=== PATIENT | female | born 1975 | race Caucasian/White ===

== ENCOUNTER 2018-05-22 11:55 | Observation (INO) ==
[2018-05-22] MEDS ORDERED: Ondansetron 4 MG/2 ML VIAL IVP ONE (13:15)
[2018-05-22] MEDS ORDERED: 0.9 % Sodium Chloride 1,000 ML IVC ONE (13:15)
[2018-05-22 13:18] LABS: Basophils % 0.3 %; Eosinophils # 0.3 K/mcL (0.0-0.6); Eosinophils % 3.8 %; Hematocrit 36.8 % (35.3-44.9); Hemoglobin 12.3 g/dL (11.5-15.4); Immature Granulocytes % 0.3 % (0-4); Lymphocytes # 1.8 K/mcL (0.6-4.6); Lymphocytes % 27.3 %; Mean Corpuscular HGB Conc 33.4 g/dL (31.6-35.5); Mean Corpuscular Hemoglobin 29.4 pg (28.0-33.3); Mean Corpuscular Volume 87.8 fL (83.0-100.0); Mean Platelet Volume 9.2 fL (9.4-12.4); Monocytes # 0.3 K/mcL (0.0-1.3); Monocytes % 4.9 %; Neutrophils # 4.2 K/mcL (1.6-8.9); Platelet Count 241 K/mcL (140-400); Red Blood Count 4.19 M/mcL (3.82-4.97); Red Cell Distribution Width 12.8 % (11.5-14.5); Segmented Neutrophils % 63.4 %
[2018-05-22] MEDS ORDERED: Hyoscyamine SL 0.125 MG TAB.SUBL SL STA (13:20)
--- NOTE | 2018-05-22 13:24 | Emergency Department Note ---
Disposition Clinical Impression: Ovarian torsion Disposition: Admitted As Inpatient Condition: Undetermined Time of Disposition: 15:26 Abdominal Pain HPI - General Chief Complaint: ED Abdominal Pain Stated Complaint: abd pain Time Seen by Provider: 05/22/18 13:04 Source: patient Mode of arrival: ambulatory Limitations: no limitations Nursing Notes Reviewed: Yes Vital Signs Reviewed: Yes - History of Present Illness HPI Narrative: 42-year-old female with history of previous opiate abuse in 24 months clean on the vivitrol, history of appendectomy, history of tubal ligation, arrives to the emergency department with complaint of lower abdominal discomfort. The patient states is been ongoing the past few days. Patient states it is nonradiating. In addition the patient is noted a roughly 24 hours of a large amount of vaginal bleeding. She denies any other vaginal discharge. She denies any fevers, chills, vomiting, diarrhea, melena, hematochezia, chest pain , difficulty breathing. The patient is uncomfortable on examination but is in no acute distress at this time. Pain Scale: 10 - Related Data Home Medications Medication Instructions Recorded Confirmed BuPROPion XL (24 HR) [Wellbutrin 150 mg PO DAILY 05/22/18 05/22/18 XL] Bupropion HCl [Wellbutrin Xl] 300 mg PO DAILY 05/22/18 05/22/18 FLUoxetine HCl [Fluoxetine HCl] 40 mg PO DAILY 05/22/18 05/22/18 Gabapentin [Neurontin] 600 mg PO TID 05/22/18 05/22/18 Naltrexone HCl 50 mg PO DAILY 05/22/18 05/22/18 Naltrexone Microspheres [Vivitrol] 380 mg IM Q28D 05/22/18 05/22/18 Allergies Allergy/AdvReac Type Severity Reaction Status Date / Time No Known Allergies Allergy Verified 05/22/18 15:48 All systems ED: reviewed and negative except as stated. Constitutional: Denies: fever, chills, weakness ENT ED: Denies: dysphagia Cardiovascular: Denies: chest pain Respiratory: Denies: dyspnea Gastrointestinal: Reports: abdominal pain, nausea. Denies: vomiting, diarrhea, constipation, hematemesis, melena, hematochezia Genitourinary: Reports: abnormal menses. Denies: urgency, dysuria, frequency, hematuria, discharge Musculoskeletal: Denies: back pain, neck pain, arthralgia, myalgia Integumentary: Denies: rash Neurological: Denies: headache Abdominal Pain PMH - Past Medical History Medical history: Reports: other (IVDA) Female Surgical History: Reports: no surgical history Psychiatric history: Reports: anxiety, depression - Social History Smoking status: Current every day smoker Alcohol use: Reports: none Drug use: Reports: cocaine, opiates (states she likes Percocets and Hydrocodone) , marijuana, IV Drug Use Physical Exam - General Limitations: no limitations General appearance: alert, in no apparent distress - Head Head exam: atraumatic, normocephalic, normal inspection - Eye Eye exam: Present: normal appearance, PERRL, EOMI - ENT ENT exam: normal exam, normal oropharynx, mucous membranes moist - Neck Neck exam: Present: normal inspection, full ROM, trachea midline - Chest Chest inspection: Present: normal inspection, symmetric chest wall rise - Respiratory Respiratory exam: Present: normal lung sounds bilaterally - Cardiovascular Cardiovascular exam: Present: regular rate, normal rhythm, normal heart sounds - Abdominal Exam Abdominal exam: Present: soft, tenderness (Pelvis). Absent: distention, guarding, rebound, rigidity, pulsatile mass, hernia - Extremities Exam Extremities exam: Present: normal inspection, full ROM. Absent: tenderness, pedal edema - Neurological Exam Neurological exam: Present: alert, oriented X3 - Skin Skin exam: Present: warm, dry, intact, normal color Course - Reevaluation(s) Reevaluation #1: Patient's CT scan demonstrates subcutaneous areas of fluid collection. Patient denies any injections or reason why they are be fluid collections in the pelvis. In addition the patient's transvaginal ultrasound reveals lack of flow to the left ovary. This is noted to be likely technical but given the patient' s pelvic pain, DEPENDENCY COUNSELOR was called and are requested to see the patient in the emergency department. We spoke to Kimberly Marie, who will see patient. Time: 15:12 Vital Signs Temperature 98.0 F 05/22/18 11:59 Pulse Rate 71 05/22/18 11:59 Respiratory Rate 20 05/22/18 11:59 Blood Pressure 135/90 05/22/18 11:59 O2 Sat by Pulse Oximetry 98 05/22/18 11:59 Temperature 98.0 F 05/22/18 13:00 Pulse Rate 66 05/22/18 16:01 Respiratory Rate 18 05/22/18 16:01 Blood Pressure 128/86 05/22/18 16:01 O2 Sat by Pulse Oximetry 99 05/22/18 16:01 Oxygen Delivery Oxygen Delivery Room Air Abdominal Pain - MDM Narrative Medical decision making narrative: Patient seen by DEPENDENCY COUNSELOR, Dr. Nelson in room and they will be taking to the operating room for concern for left ovarian torsion. The patient was noted to have no flow on the left side noted from revisualization by DEPENDENCY COUNSELOR. - Lab Data Lab results reviewed: Yes I reviewed the patient's lab results. Result diagrams: 05/22/18 12:52 05/22/18 12:52 Lab Results 05/22/18 05/22/18 05/22/18 Range/Units 12:52 12:52 13:09 WBC 6.6 (4.3-11.1) K/mcL RBC 4.19 (3.82-4.97) M/mcL Hgb 12.3 (11.5-15.4) g/dL Hct 36.8 (35.3-44.9) % MCV 87.8 (83.0-100.0) fL MCH 29.4 (28.0-33.3) pg MCHC 33.4 (31.6-35.5) g/dL RDW 12.8 (11.5-14.5) % Plt Count 241 (140-400) K/mcL MPV 9.2 L (9.4-12.4) fL Immature Gran % 0.3 (0-4) % Seg Neutrophils % 63.4 % Lymphocytes % 27.3 % Monocytes % 4.9 % Eosinophils % 3.8 % Basophils % 0.3 % Neutrophils # 4.2 (1.6-8.9) K/mcL Lymphocytes # 1.8 (0.6-4.6) K/mcL Monocytes # 0.3 (0.0-1.3) K/mcL Eosinophils # 0.3 (0.0-0.6) K/mcL Basophils # 0.0 (0.0-0.2) K/mcL Sodium 137 (136-145) mEq/L Potassium 4.3 (3.5-5.1) mEq/L Chloride 109 H (98-107) mEq/L Carbon Dioxide 23 (23-29) mEq/L BUN 19 (6-20) mg/dL Creatinine 0.61 (0.60-1.20) mg/dL Est GFR ( Amer) > 60 (> 60) Est GFR (Non-Af Amer) > 60 (> 60) BUN/Creatinine Ratio 31 H (6-26) Glucose 106 H (70-105) mg/dL Calculated Osmolality 287 (280-300) Calcium 8.5 L (8.6-10.3) mg/dL Total Bilirubin 0.3 (0.3-1.0) mg/dL Direct Bilirubin 0.1 (0.0-0.2) mg/dL Indirect Bilirubin 0.2 (0.0-1.2) mg/dL AST 17 (13-39) Units/L ALT 13 (7-52) Units/L Alkaline Phosphatase 57 (34-104) Units/L Serum Total Protein 6.6 (6.4-8.9) g/dL Albumin 3.7 (3.5-5.7) g/dL Globulin 2.9 (2.4-3.5) g/dL Albumin/Globulin Ratio 1.3 (1.1-2.2) Lipase 11 (11-82) Units/L Urine Color Yellow (Yellow) Urine Clarity Clear (Clear) Urine pH 6.0 (5.0-8.0) pH Units Ur Specific [place] 1.026 H (1.010-1.025) Urine Protein Negative (Neg-Trace) mg/dL Urine Glucose (UA) Normal (Normal) mg/dL Urine Ketones Negative (Negative) mg/dL Urine Blood Large H (Negative) Urine Nitrite Negative (Negative) Urine Bilirubin Negative (Negative) Urine Urobilinogen Normal (Normal) mg/dL Ur Leukocyte Esterase Negative (Negative) Urine Microscopic RBC TNTC H (0-3) per hpf Urine Microscopic WBC 0-3 (0-3) per hpf Ur Squamous Epith Cells Many H (None-Few) per lpf Urine Bacteria None Seen (None-Few) per hpf Hyaline Casts None Seen (None-Few) per lpf Ur Culture Indicated? NO (NO) Urine Test (Negative) 05/22/18 Range/Units 13:09 WBC (4.3-11.1) K/mcL RBC (3.82-4.97) M/mcL Hgb (11.5-15.4) g/dL Hct (35.3-44.9) % MCV (83.0-100.0) fL MCH (28.0-33.3) pg MCHC (31.6-35.5) g/dL RDW (11.5-14.5) % Plt Count (140-400) K/mcL MPV (9.4-12.4) fL Immature Gran % (0-4) % Seg Neutrophils % % Lymphocytes % % Monocytes % % Eosinophils % % Basophils % % Neutrophils # (1.6-8.9) K/mcL Lymphocytes # (0.6-4.6) K/mcL Monocytes # (0.0-1.3) K/mcL Eosinophils # (0.0-0.6) K/mcL Basophils # (0.0-0.2) K/mcL Sodium (136-145) mEq/L Potassium (3.5-5.1) mEq/L Chloride (98-107) mEq/L Carbon Dioxide (23-29) mEq/L BUN (6-20) mg/dL Creatinine (0.60-1.20) mg/dL Est GFR ( Amer) (> 60) Est GFR (Non-Af Amer) (> 60) BUN/Creatinine Ratio (6-26) Glucose (70-105) mg/dL Calculated Osmolality (280-300) Calcium (8.6-10.3) mg/dL Total Bilirubin (0.3-1.0) mg/dL Direct Bilirubin (0.0-0.2) mg/dL Indirect Bilirubin (0.0-1.2) mg/dL AST (13-39) Units/L ALT (7-52) Units/L Alkaline Phosphatase (34-104) Units/L Serum Total Protein (6.4-8.9) g/dL Albumin (3.5-5.7) g/dL Globulin (2.4-3.5) g/dL Albumin/Globulin Ratio (1.1-2.2) Lipase (11-82) Units/L Urine Color (Yellow) Urine Clarity (Clear) Urine pH (5.0-8.0) pH Units Ur Specific [place] (1.010-1.025) Urine Protein (Neg-Trace) mg/dL Urine Glucose (UA) (Normal) mg/dL Urine Ketones (Negative) mg/dL Urine Blood (Negative) Urine Nitrite (Negative) Urine Bilirubin (Negative) Urine Urobilinogen (Normal) mg/dL Ur Leukocyte Esterase (Negative) Urine Microscopic RBC (0-3) per hpf Urine Microscopic WBC (0-3) per hpf Ur Squamous Epith Cells (None-Few) per lpf Urine Bacteria (None-Few) per hpf Hyaline Casts (None-Few) per lpf Ur Culture Indicated? (NO) Urine Test Negative (Negative) - Radiology Data Radiology results reviewed: Yes I reviewed the patient's radiology results. Abdomen/Pelvis CT 05/22/18 13:21 IMPRESSION: 1. No acute process in the abdomen or pelvis. 2. Postoperative change of appendectomy. 3. Scattered small nonspecific areas of fluid in the subcutaneous soft tissues overlying the posterior aspect of the pelvis, measuring up to 2.8 x 1.9 cm. These could represent the sequelae of subcutaneous injections. Infected fluid collections are felt to be unlikely. D/ / 05/22/2018 15:11:31 Diego Menezes MD / [facility] Interpreting Provider: Diego Menezes MD Abdomen/Pelvis/Transvag US 05/22/18 13:21 IMPRESSION: 1. No flow is detected in the left ovary which is favored to be technical and related to suboptimal visualization. The right ovary appears within normal limits. 2. A 7 x 6 x 9 mm echogenic focus in the right ovary, most consistent with a dermoid cyst. D/ / 05/22/2018 14:51:13 Diego Menezes MD / [facility] Interpreting Provider: Diego Menezes MD Attestation Statement - Attestation Attestation: I examined this patient and my medical decision-making was reviewed with the Resident Physician. I agree with the documented findings, disposition and treatment plan as described except to the extent set forth below. Ultrasound concerning for possible torsion given pain in the lower quadrant we will consult emergently gynecology. They are available at the bedside for emergent consultation. The patient will be admitted to gynecology and will be taken directly to the operating room
[2018-05-22 13:26] LABS: Bilirubin,Urine Negative (Negative); Blood,Urine Large (Negative); Clarity,Urine Clear (Clear); Color,Urine Yellow (Yellow); Glucose,Urine (UA) Normal (Normal); Ketones,Urine Negative (Negative); Leukocyte Esterase,Urine Negative (Negative); Nitrite,Urine Negative (Negative); Protein,Urine Negative (Neg-Trace); Specific Gravity,Urine 1.026 (1.010-1.025); Urobilinogen,Urine Normal (Normal)
[2018-05-22 13:29] LABS: Bacteria,Urine None Seen per hpf (None-Few); Hyaline Casts,Urine None Seen per lpf (None-Few); RBC,Urine TNTC per hpf (0-3); Squamous Epithelial Cell,Urine Many per lpf (None-Few); WBC,Urine 0-3 per hpf (0-3)
[2018-05-22 13:49] LABS: Alanine Aminotransferase 13 Units/L (7-52); Albumin 3.7 g/dL (3.5-5.7); Albumin/Globulin Ratio 1.3 (1.1-2.2); Alkaline Phosphatase 57 Units/L (34-104); Aspartate Amino Transferase 17 Units/L (13-39); BUN/Creatinine Ratio 31 (6-26); Bilirubin,Direct 0.1 mg/dL (0.0-0.2); Bilirubin,Indirect 0.2 mg/dL (0.0-1.2); Bilirubin,Total 0.3 mg/dL (0.3-1.0); Blood Urea Nitrogen 19 mg/dL (6-20); Calcium 8.5 mg/dL (8.6-10.3); Carbon Dioxide 23 mEq/L (23-29); Chloride 109 mEq/L (98-107); Globulin 2.9 g/dL (2.4-3.5); Glucose 106 mg/dL (70-105); Lipase 11 Units/L (11-82); Osmolality,Calculated 287 (280-300); Potassium 4.3 mEq/L (3.5-5.1); Sodium 137 mEq/L (136-145); Total Protein 6.6 g/dL (6.4-8.9); eGFR For Non-African Americans > 60 (> 60)
--- NOTE | 2018-05-22 15:45 | Anesthesia Evaluation PreOp ---
Date of Encounter: 05/22/18 Time of Encounter: 15:42 - Past History Planned Operation: Exp. Lap. 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: Denies Any Significant HX Other Medical History: Denies Any Significant HX Anesthesia History: No Prior Anesthetic Complications, Past Anesthesia (appy) : No Test: Negative (05/22/2018) Alcohol Use: none Drug use: cocaine, opiates (states she likes Percocets and Hydrocodone), marijuana, IV Drug Use Medications and Allergies BuPROPion XL (24 HR) [Wellbutrin XL] 150 mg PO DAILY 05/22/18 [History] Bupropion HCl [Wellbutrin Xl] 300 mg PO DAILY 05/22/18 [History] FLUoxetine HCl [Fluoxetine HCl] 40 mg PO DAILY 05/22/18 [History] Gabapentin [Neurontin] 600 mg PO TID 05/22/18 [History] Naltrexone HCl 50 mg PO DAILY 05/22/18 [History] Naltrexone Microspheres [Vivitrol] 380 mg IM Q28D 05/22/18 [History] 3 Allergy/AdvReac Type Severity Reaction Status Date / Time No Known Allergies Allergy Verified 05/22/18 15:48 - Meds/Allergy Pre-op Review Medications Reviewed: Yes Allergies Reviewed: Yes Beta Blockers on Current Med List: No Anesthesia Results - Labs 05/22/18 12:52 05/22/18 12:52 Anesthesia Exam O2 Sat Height 1.7 m Height 1.7 m Weight 97.976 kg Weight 97.976 kg O2 Sat by Pulse Oximetry 99 O2 Sat by Pulse Oximetry 98 O2 Sat by Pulse Oximetry 98 Vital Signs Temp Pulse Resp BP Pulse Ox 98.0 F 71 20 135/90 98 05/22/18 11:59 05/22/18 11:59 05/22/18 11:59 05/22/18 11:59 05/22/18 11:59 Laboratory Tests 05/22/18 13:09 Urine Test Negative - HEENT Pupil (Motor): Pupils equal, EOMI Mallampati: I Teeth: Normal Oral Opening: Greater than 3 - ENGINEERING OFFICER LOC: Oriented ENGINEERING OFFICER Motor: Normal RUE, Normal LUE, Normal RLE, Normal LLE, Normal Face ENGINEERING OFFICER Sensory: Normal: RUE, LUE, RLE, LLE, Face - Cardiac Rhythm: Regular Murmur: None JVD: No Carotid Bruit: No - Pulmonary Breath Sounds: bilateral Clear Respiratory Effort: Symmetrical Anesthesia Assess/Plan ASA Score: 2 Modified [place] Scale for Level of Consciousness: Cooperative, oriented, and tranquil Anesthetic Plan: General Autologous Blood: Yes Monitoring Plan: Standard Monitors Recovery Plan: PACU
[2018-05-22] MEDS ORDERED: *HR* FentaNYL (PF) 100 MCG/2 ML VIAL ONE (15:50)
[2018-05-22] MEDS ORDERED: *HR* Propofol 200 MG/20 ML VIAL IVP ONE (15:50)
[2018-05-22] MEDS ORDERED: *HR* Midazolam HCl 2 MG/2 ML VIAL ONE ×2 (15:50→16:26)
[2018-05-22] MEDS ORDERED: Lidocaine -MPF 2% 2 ML VIAL ONE (15:53)
[2018-05-22] MEDS ORDERED: *HR* Rocuronium Bromide 50 MG/5 ML VIAL ONE (15:53)
[2018-05-22] MEDS ORDERED: Neostigmine Methylsulfate 3 MG/3 ML SYRINGE ONE ×2 (15:53→18:21)
[2018-05-22] MEDS ORDERED: *HR* Succinylcholine 200 MG/10 ML VIAL IVP ONE (15:53)
[2018-05-22] MEDS ORDERED: Dexamethasone 4 MG/ML VIAL ONE (15:53)
[2018-05-22] MEDS ORDERED: Ondansetron 4 MG/2 ML VIAL ONE (15:53)
[2018-05-22] MEDS ORDERED: Bupivacaine/EPI 1:200k 0.25%PF 30 ML VIAL ONE (16:01)
--- NOTE | 2018-05-22 16:08 | OB/GYN Consult Note ---
Date of Encounter: 05/22/18 Time of Encounter: 16:06 Assessment and Plan (1) Ovarian torsion Current Visit: Yes Status: Acute Prob list: 42 y/o Ovarian torsion Recovering IV drug user Smoker Plan: I spoke to the patient and her family that based on her clinical picture and the U/S findings, she has a torsed ovary. I recommended surgery specifically diag lap with possible salpingo-oophorectomy. I explained the surgery in detail and answered her questions. Consents signed. History of Present Illness Consult date: 05/22/18 Reason for consult: pelvic pain History of present illness: 42 y/o presents with family to the ED with sharp consistent pelvic pain that started when she was at the [facility]. Her pain has worsened since then. No alleviating or aggravating factors. Pain is located more on the left lower quadrant. U/S done today suggests ovarian torsion as no flow was noted to the left ovary. Patient is currently on her period. Past Med Surg Social Fam HX - Past Medical History Medical history: other (IVDA) Additional medical history: iv drug user. hepatitus C Psychiatric history: anxiety, depression - Past Surgical History Surgical History: no surgical history - Social History Smoking Status: Current every day smoker Smokeless Tobacco Status: No Alcohol use: none Drug use: cocaine, opiates (states she likes Percocets and Hydrocodone), marijuana, IV Drug Use Medications and Allergies BuPROPion XL (24 HR) [Wellbutrin XL] 150 mg PO DAILY 05/22/18 [History] Bupropion HCl [Wellbutrin Xl] 300 mg PO DAILY 05/22/18 [History] FLUoxetine HCl [Fluoxetine HCl] 40 mg PO DAILY 05/22/18 [History] Gabapentin [Neurontin] 600 mg PO TID 05/22/18 [History] Naltrexone HCl 50 mg PO DAILY 05/22/18 [History] Naltrexone Microspheres [Vivitrol] 380 mg IM Q28D 05/22/18 [History] 3 Allergy/AdvReac Type Severity Reaction Status Date / Time No Known Allergies Allergy Verified 05/22/18 15:48 Review of Systems All Systems: reviewed and no additional remarkable complaints except as stated Exam - Vital Signs Vital signs: Initial Vital Signs Temp Pulse Resp BP Pulse Ox 98.0 F 71 20 135/90 98 05/22/18 11:59 05/22/18 11:59 05/22/18 11:59 05/22/18 11:59 05/22/18 11:59 - Constitutional Constitutional: mild distress - Abdomen Abdomen: Present: diffuse tenderness Results Result Diagrams: 05/22/18 12:52 05/22/18 12:52 Abnormal lab results MPV 9.2 fL (9.4-12.4) L 05/22/18 12:52 Chloride 109 mEq/L (98-107) H 05/22/18 12:52 BUN/Creatinine Ratio 31 (6-26) H 05/22/18 12:52 Glucose 106 mg/dL (70-105) H 05/22/18 12:52 Calcium 8.5 mg/dL (8.6-10.3) L 05/22/18 12:52 Ur Specific [place] 1.026 (1.010-1.025) H 05/22/18 13:09 Urine Blood Large (Negative) H 05/22/18 13:09 Urine Microscopic RBC TNTC per hpf (0-3) H 05/22/18 13:09 Ur Squamous Epith Cells Many per lpf (None-Few) H 05/22/18 13:09 All other labs normal. Consult Discharge Plan - Plan Referrals: Tae Dwyer MD [Primary Care Provider] -
[2018-05-22] MEDS ORDERED: KETAMINE HCL 50 MG/ML SYRINGE IV ONE (16:22)
[2018-05-22] MEDS ORDERED: Acetaminophen IV 1,000 MG/100 ML INFUS..BTL ONE (16:22)
[2018-05-22] MEDS ORDERED: Dexmedetomidine HCl 400 MCG/100 ML MLS IVC ONE (16:22)
[2018-05-22] MEDS ORDERED: Albuterol 2.5 MG/3 ML NEBULIZER IH ONE (16:24)
[2018-05-22] MEDS ORDERED: Ketorolac 30 MG/ML VIAL ONE (18:20)
[2018-05-22] MEDS ORDERED: *HR* Promethazine 25 MG/ML VIAL ONE (18:50)
[2018-05-22] MEDS ORDERED: *HR* Promethazine 25 MG/ML VIAL IVP PRN ×2 (18:59→19:56)
--- NOTE | 2018-05-22 19:01 | OB/GYN Procedure Note ---
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: Procedure - Diagnosis Date of procedure: 05/22/18 Pre-op diagnosis: Pelvic pain, Ovarian torsion Post-op diagnosis: other - Procedure Procedure: Diagnostic Laparoscopy Surgeon: Michael Nelson Was there an placement assistant present: Yes Certified Nursing Assistant: Aidan Verma Anesthesia Type: General Estimated blood loss (cc): 3 Fluids: crystalloid Procedure Complications: none Specimens collected: none Disposition: same day Findings: surgically ligated tubes bilaterally, normal looking ovaries bilaterally, no evidence of torsion Narrative: The patient was taken to the OR where general anesthesia was easily obtained. The patient was then prepped and draped in a sterile fashion and placed in dorsal lithotomy position. A sponge on a spongestick was placed into the vagina for uterine manipulation. Attention was then turned to the abdomen where an incision was made with a blade in-between the umbilical folds after 1/4% Marcaine with Epi was injected. With the abdomen tented, a 5mm trocar was advanced into the abdomen with the camera after which pneumoperitoneum was started. After adequate pneumoperiteneum was achieved, the laparoscope camera was reinserted and provided good visualization of the abdomen. The abdomen was explored after the patient was placed in trendelenburg and the uterus, ovaries and all looked normal. I placed one 5mm trocar in the left lower quadrant. Through this trocar, I used a blunt probe to lift the uterus. I explored both ovaries and they looked normal. I spent approx 10 mins exploring the ovaries and the surrounding vessels and there was no evidence of ovarian torsion. At this point I had to terminate the surgery as the abdomen showed normal findings. Several pictures were taken. Both ports were removed under direct visualization. The laparoscope was removed. The incisions were approximated with dermabond and steristrips . The patient tolerated the procedure well and was taken to recovery in stable condition.
--- NOTE | 2018-05-22 19:21 | Anesthesia Evaluation Post Op ---
Date of Encounter: 05/22/18 Time of Encounter: 19:19 - Vital Signs Vital Signs: Vital Signs/O2 Sat, Most Current Temp Pulse Resp BP Pulse Ox 97.5 F L 56 16 110/76 99 05/22/18 19:02 05/22/18 19:12 05/22/18 19:12 05/22/18 19:12 05/22/18 19:12 - Lungs Lungs: Clear Ascult./Percussion - Airway Airway: Non-obstructed - Cardiovascular Regular Rate - Mental Status Mental Status: Asleep with brisk response to light stimulation - Pain Pain Scale used: Numeric (1 - 10) (tolerable) - Nausea Vomiting Nausea Vomiting: Not Present - Hydration Hydration: NPO - Discharge PostOp Status: Transfer Patient to floor Attestation: I have assessed this patient and find they meet discharge criteria.
[2018-05-22] MEDS ORDERED: Ketorolac 30 MG/ML VIAL IVP PRN (19:56)
[2018-05-23] MEDS ORDERED: Ringers Solution, Lactated 1,000 ML ONE (00:36)
[2018-05-23] MEDS ORDERED: Acetaminophen 325 MG TABLET PO PRN (08:02)
--- NOTE | 2018-05-23 08:27 | Discharge Summary ---
Date of Encounter: 05/23/18 Time of Encounter: 08:25 - Discharge Diagnosis (1) Ovarian torsion Priority: Primary Status: Acute Comments: s/p diag Lap for possible torsion POD#1, patient doing well this AM, pain is under control, ok to have breakfast, ok for discharge to follow up with Dr Burdick - Discharge Medications Home Medications: BuPROPion XL (24 HR) [Wellbutrin XL] 150 mg PO DAILY 05/22/18 [History] Bupropion HCl [Wellbutrin Xl] 300 mg PO DAILY 05/22/18 [History] FLUoxetine HCl [Fluoxetine HCl] 40 mg PO DAILY 05/22/18 [History] Gabapentin [Neurontin] 600 mg PO TID 05/22/18 [History] Naltrexone HCl 50 mg PO DAILY 05/22/18 [History] Naltrexone Microspheres [Vivitrol] 380 mg IM Q28D 05/22/18 [History] Allergies/Adverse Reactions: 3 Allergy/AdvReac Type Severity Reaction Status Date / Time No Known Allergies Allergy Verified 05/22/18 15:48 Date of admission: 05/22/18 15:31 Primary care physician: Tae Dwyer MD - Patient Status Disposition: Home, Self-Care Condition: Good Functional capacity at discharge: independent ambulation Overall status at discharge: patient is progressing back to baseline - Discharge Instructions Follow Up With: Tae Dwyer MD [Primary Care Provider] - Hospital Course FIRST RESPONDER Time Attestation: Total time spent providing and/or coordinating discharge services: Exam - Constitutional Vitals: Temp Pulse Resp BP Pulse Ox 98.2 F 73 14 104/66 96 05/23/18 04:00 05/23/18 04:00 05/23/18 04:00 05/23/18 04:00 05/23/18 04:00 General appearance IM: A&O X 3 - GI/Abdominal GI/Abdominal exam IM: soft, no peritoneal signs - VTE Documentation of Mechanical Device: Intermittent pneumatic compression device
[2018-05-23 08:50] VITALS: BP 140/81
== END 2018-05-23 10:33 | disposition home or self-care (01) ==
LOC: 1NENUOBS 11:55 → EMEROO 11:55 → 1NENUOBS 15:57
PROVIDERS: ADMIT Student in an Organized Health Care Education/Training Program; ATTEND Student in an Organized Health Care Education/Training Program

== ENCOUNTER 2019-09-01 10:33 | Inpatient (IN) ==
[2019-09-01 11:29] LABS: Bilirubin,Urine Negative (Negative); Blood,Urine Negative (Negative); Clarity,Urine Cloudy (Clear); Color,Urine Yellow (Yellow); Glucose,Urine (UA) Normal (Normal); Ketones,Urine Trace mg/dL (Negative); Leukocyte Esterase,Urine Moderate (Negative); Nitrite,Urine Negative (Negative); Protein,Urine Negative (Neg-Trace); Specific Gravity,Urine 1.013 (1.010-1.025); Urobilinogen,Urine Normal (Normal)
[2019-09-01 11:31] LABS: Basophils % 0.3 %; Eosinophils # 0.1 K/mcL (0.0-0.6); Eosinophils % 1.4 %; Hematocrit 44.5 % (35.3-44.9); Hemoglobin 15.2 g/dL (11.5-15.4); Immature Granulocytes % 0.1 % (0-4); Lymphocytes % 28.1 %; Mean Corpuscular HGB Conc 34.2 g/dL (31.6-35.5); Mean Corpuscular Hemoglobin 30.5 pg (28.0-33.3); Mean Corpuscular Volume 89.4 fL (83.0-100.0); Monocytes # 0.4 K/mcL (0.0-1.3); Neutrophils # 4.7 K/mcL (1.6-8.9); Platelet Count 281 K/mcL (140-400); Red Blood Count 4.98 M/mcL (3.82-4.97); Red Cell Distribution Width 11.8 % (11.5-14.5); Segmented Neutrophils % 65.1 %; White Blood Count 7.2 K/mcL (4.3-11.1)
[2019-09-01 11:32] LABS: Bacteria,Urine Few per hpf (None-Few); Hyaline Casts,Urine None Seen per lpf (None-Few); Squamous Epithelial Cell,Urine Many per lpf (None-Few)
[2019-09-01 11:43] LABS: Amphetamine Screen,Urine Positive ng/mL (Cutoff=1000); Barbiturate Screen,Urine Negative ng/mL (Cutoff=200); Benzodiazepines Screen,Urine Negative ng/mL (Cutoff=200); Cannabinoid Screen,Urine Positive ng/mL (Cutoff = 50); Cocaine Screen,Urine Negative ng/mL (Cutoff= 300); Opiate Screen,Urine Negative ng/mL (Cutoff=300); Phencyclidine Screen,Urine Negative ng/mL (Cutoff=25)
[2019-09-01 11:49] LABS: Acetaminophen < 10 mcg/mL (10-20); BUN/Creatinine Ratio 18 (6-26); Blood Urea Nitrogen 14 mg/dL (6-20); Calcium 9.6 mg/dL (8.6-10.3); Carbon Dioxide 24 mEq/L (23-29); Chloride 101 mEq/L (98-107); Ethanol < 10 mg/dL (Less than 10); Glucose 85 mg/dL (70-105); Osmolality,Calculated 278 (280-300); Potassium 3.8 mEq/L (3.5-5.1); Salicylate < 2.5 mg/dL (15.0-30.0); Sodium 134 mEq/L (136-145); eGFR For African Americans > 60 (> 60); eGFR For Non-African Americans > 60 (> 60)
[2019-09-01] MEDS ORDERED: Haloperidol Lactate 5 MG/ML VIAL IM ONE ×2 (13:39→16:34)
[2019-09-01] MEDS ORDERED: *HR* LORazepam 2 MG/ML VIAL IM ONE ×2 (13:40→16:34)
[2019-09-01] MEDS ORDERED: Haloperidol Lactate 5 MG/ML VIAL IVP ONE (16:32)
[2019-09-01] MEDS ORDERED: *HR* LORazepam 2 MG/ML VIAL IVP ONE (16:32)
[2019-09-01] MEDS ORDERED: Haloperidol Lactate 5 MG/ML VIAL IM PRN (18:07)
[2019-09-01] MEDS ORDERED: Mag Hydrox/Al Hydrox/Simeth 30 ML UDC PO PRN (18:07)
[2019-09-01] MEDS ORDERED: hydrOXYzine pamoate 25 MG CAPSULE PO PRN (18:07)
[2019-09-01] MEDS ORDERED: Ibuprofen 400 MG TABLET PO PRN (18:07)
[2019-09-01] MEDS ORDERED: MOM Conc 10 ML UD.LIQ PO PRN (18:07)
[2019-09-01] MEDS: Gabapentin 300 MG CAPSULE PO SCH (22:57)
[2019-09-02] MEDS: Topiramate 25 MG TABLET PO SCH (10:12)
[2019-09-02] MEDS: Gabapentin 300 MG CAPSULE PO SCH ×3 (10:12→21:08)
[2019-09-02] MEDS: BuPROPion XL (24 HR) 150 MG TABLET PO SCH (12:06)
[2019-09-02] MEDS: Naltrexone HCl 50 MG TABLET PO SCH (12:06)
[2019-09-03] MEDS: Gabapentin 300 MG CAPSULE PO SCH ×3 (08:43→20:07)
[2019-09-03] MEDS: Topiramate 25 MG TABLET PO SCH (08:44)
[2019-09-03] MEDS: BuPROPion XL (24 HR) 150 MG TABLET PO SCH (08:44)
[2019-09-03] MEDS: Naltrexone HCl 50 MG TABLET PO SCH (08:44)
[2019-09-04] MEDS: BuPROPion XL (24 HR) 150 MG TABLET PO SCH (08:44)
[2019-09-04] MEDS: Naltrexone HCl 50 MG TABLET PO SCH (08:44)
[2019-09-04] MEDS: Gabapentin 300 MG CAPSULE PO SCH (08:44)
[2019-09-04] MEDS: Topiramate 25 MG TABLET PO SCH (08:44)
[2019-09-04 08:48] VITALS: BP 104/76
[2019-09-04] MEDS ORDERED: BuPROPion XL (24 HR) 150 MG TABLET PO SCH (09:00)
== END 2019-09-04 12:03 | disposition home or self-care (01) | DRG 753 ==
LOC: 1ANU 10:33 → EMEROOARM 10:33 → 1ANU 17:36
PROVIDERS: ADMIT Psychiatry & Neurology Psychiatry; ATTEND Psychiatry & Neurology Psychiatry